=== PATIENT | female | born 1965 | race Caucasian/White ===

== ENCOUNTER 2017-01-04 04:22 | Day surgery (SDC) | payer BC ==
[2017-01-01 08:24] LABS: HEMOGLOBIN 12.4 g/dL (12.0-16.0)
[2017-01-01 08:36] LABS: BUN (BLOOD UREA NITROGEN) 13 MG/DL (6-23); CALCIUM, SERUM 8.7 MG/DL (8.5-10.4); CHLORIDE, SERUM 104 MMOL/L (96-112); CO2 (CARBON DIOXIDE) 31 MMOL/L (24-34); CREATININE 0.73 MG/DL (0.55-1.02); GFR AFRICAN AMERICAN 109 ML/MIN (>=60); GFR NON AFRICAN AMERICAN 94 ML/MIN (>=60); SODIUM, SERUM 138 MMOL/L (135-148)
[2017-01-01 08:37] LABS: GLUCOSE, SERUM 99 MG/DL (60-99); POTASSIUM, SERUM 3.9 MMOL/L (3.5-5.3)
--- NOTE | ~2017-01-04 | OP ---
Record Of Operation [facility] [address] [place]. [address] NAME: COSMO MACARIO : 61 [place] [facility] [place] [id number] AGE: 51 ADM/REG DATE : 01/04/17 MR#: [id number] REPORT SERV DATE: 01/04/17 DICTATED BY: SCOTTY CALLAHAN DATE: 01/04/17 REPORT STATUS : Draft TRANSCRIBED BY: MODL DATE: 01/04/17 DATE OF PROCEDURE: PREOPERATIVE DIAGNOSIS: Herniated nucleus pulposus, left L4-5 with intractable radiculopathy. POSTOPERATIVE DIAGNOSIS: Herniated nucleus pulposus, left L4-5 with intractable radiculopathy. PROCEDURE: 1. Microscopic navigation-assisted surgery. 2. Left L4-5 hemilaminotomy and microdiskectomy. SURGEON: Scotty Callahan D.O. TANK CAR INSPECTOR: Jaylen Madrigal. ANESTHESIA: General. ESTIMATED BLOOD LOSS: 20 mL. INDICATIONS FOR SURGERY: A 51-year-old female, with left buttock and leg pain. It has been through time, medication, therapy, and usual conservative care with failure. Plain x-rays are normal, but MRI shows a large herniation with extrusion and some migration behind the body of L5 causing impingement on the traversing L5 nerve root. The patient has failed conservative care, now brought to surgery for the above procedure. Prior to surgery, risks, benefits, alternatives, and expectations were explained. Consent form is signed. Also please note, because of the complexity of surgery the need to identify the correct level of surgery intraoperatively, as well as desire to carry out the safest and most precise dissection with least amount of radiation exposure, I felt that intraoperative navigation was mandatory. DESCRIPTION OF PROCEDURE: The patient was identified in the preop holding area. Antibiotic prophylaxis was given. Neurophysiology monitoring leads were inserted. The patient was brought to the operative suite. General anesthetic including endotracheal intubation was administered. She was placed prone on a Fawad spine frame. Bony prominences were carefully padded. Thoracolumbar spine scrubbed with Hibiclens solution. DuraPrep was painted. Sterile drapes were applied. A small stab wound was carried out over the right posterior superior iliac spine. A percutaneous pin with navigational frame attached was inserted in PSIS. Intraoperative CT scan with O-arm obtained, CT information used to register the navigational system. With navigational assistance, I identified the midline of L4-5 just left of midline, a 2 cm skin incision was carried out. A blunt navigated probe was placed through the fascia muscle Record Of Operation [facility] [address] [facility] [place]. [address] NAME: COSMO MACARIO : 61 [place] [facility] [place] [id number] AGE: 51 ADM/REG DATE : 01/04/17 MR#: [id number] REPORT SERV DATE: 01/04/17 DICTATED BY: SCOTTY CALLAHAN DATE: 01/04/17 REPORT STATUS : Draft TRANSCRIBED BY: MODL DATE: 01/04/17 and docked over the interlaminar space. Muscle dilators were inserted followed placement of a tubular retractor attached to an arm mount on the table. The microscope was sterilely draped and used throughout the remainder of the procedure. With navigational assistance, I identified the amount of lamina of L4, to remove in order to reach the cephalad boundary of the disk space. I removed approximately 30% of the lamina of L4, approximately 15% of medial facet joint. The lateral ligamentum flavum was elevated and removed. There was no hypertrophy of the facet joint or ligamentum flavum. The disk was isolated as the thecal sac was retracted toward the midline and a large extruded herniation removed in multiple pieces with pituitary rongeur. After the decompression no further impingement was found by either disk, bone, or ligament. The wound was irrigated. The retractor was removed. The fascial opening was allowed to reapproximate itself. The subcutaneous tissue was closed with 2-0 Vicryl sutures, and 2-0 vertical mattress nylon suture was used for skin closure. Sterile dressings were applied. The patient returned to the supine position, awakened, extubated, and taken to recovery room in satisfactory condition having tolerated the procedure well. Sponge, needle, and instrument counts were correct. No intraoperative complications were noted. /KELLY Scotty Callahan D.O. / [id number] CC: Cherry Rangel M.D.
[~2017-01-04 04:22] MED LIST: ACET500CAP PO; ADVAIR250 INH; DSS PO; IBU800 PO; NEUR100 PO; PRILOSEC40 MG PO; PRINZIDE1 TA1 PO; REG5 PO; SINGULAIR1 PO; VENTOLIN HFA INH; WELLXL150 PO; ZYRTEC ALLGY10 MG PO
[2017-03-04] MEDS ORDERED: D 5000 PO (13:04)
== END 2017-01-04 10:20 | disposition home or self-care (01) ==
LOC: SDC 04:22
PROVIDERS: Orthopaedic Surgery Orthopaedic Surgery of the Spine
PROC: 01NB0ZZ Release Lumbar Nerve, Open Approach (ICD-10-PCS; 2017-01-04)
PROC: 0ST20ZZ Resection of Lumbar Vertebral Disc, Open Approach (ICD-10-PCS; principal; 2017-01-04 05:45)
DX: M51.16 Intervertebral disc disorders with radiculopathy, lumbar region (principal); I10 Essential (primary) hypertension; J45.909 Unspecified asthma, uncomplicated; Z88.0 Allergy status to penicillin; Z79.51 Long term (current) use of inhaled steroids; Z79.899 Other long term (current) drug therapy
CPT/HCPCS: 80048; 85014; 85018; 88304; 88311; 93005; J0690; J1030; J1885; J2250; J2274; J2405; J2710; J3010